=== PATIENT | female | born 1965 | race Caucasian/White ===

== ENCOUNTER 2019-05-26 11:04 | Observation (INO) | payer BC ==
[2019-05-26] MEDS ORDERED: DUONEB 0.5-3 MG/3 ml Neb IH ONE ×2 (11:13→11:15)
--- NOTE | 2019-05-26 11:14 | ERPHSYRPT ---
- History of Present Illness Time Seen by Provider: 05/26/19 11:14 Source: patient Exam Limitations: no limitations Physician History: 53 y/o obese, diabetic white female with h/o htn and copd presents from home with worsening soa and cough. pt wears 2 liters nc oxygen during the day and 3 liters nc oxygen at hs. pt denies cp and denies abd pain. Timing/Duration: day(s) (3) Activities at Onset: none Severity of Dyspnea-Max: moderate Severity of Dyspnea-Current: moderate Possible Cause: occasional episodes Modifying Factors: Improves With: coughing, oxygen Associated Symptoms: cough, No chest pain/discomfort Allergies/Adverse Reactions: ceftriaxone sodium [From Rocephin] Allergy (Intermediate, Verified 05/26/19 11: 08) sob in er when given this med. reversed with benadryl and solu-medrol and pepcid morphine Adverse Reaction (Verified 05/26/19 11:08) Home Medications: Amlodipine Besylate 10 mg [Norvasc 10 MG] 10 mg PO DAILY 12/19/11 [History] Levothyroxine Sodium 100 Mcg [Synthroid 100 Mcg] 100 mcg PO DAILY 12/19/11 [History] Lisinopril 20 mg PO DAILY 12/19/11 [History] Simvastatin 40 mg [Zocor 40 mg] 40 mg PO DAILY 12/19/11 [History] Sitagliptin Phos/Metformin HCl [Janumet 50-1,000 mg Tablet] 1 each PO BID [History] Zolpidem Tartrate 10 mg [Ambien 10 MG] 10 mg PO HS 12/19/11 [History] Canagliflozin [Invokana] 300 mg PO DAILY 12/02/15 [History] Ciprofloxacin [Cipro 500 MG] 500 mg PO BID 12/02/15 [History] Glimepiride 4 mg [Amaryl 4 mg] 4 mg PO DAILY 12/02/15 [History] Insulin Glargine,Hum.rec.anlog [Toujeo Solostar] 75 unit SQ BID 12/02/15 [ History] Insulin Glargine,Hum.rec.anlog [Toujeo Solostar] 75 unit SQ BID 12/02/15 [ History] Ipratropium/Albuterol Sulfate [Combivent Respimat Common Canister] 1 puff IH BIDPRN PRN 12/02/15 [History] Oxycodone HCl/Acetaminophen [Percocet 10-325 mg Tablet] 1 each PO BID PRN [History] Tiotropium Br/Olodaterol HCl [Stiolto Respimat Inhal [place]] 4 gm IH DAILY PRN PRN 12/02/15 [History] Hx Tetanus, Diphtheria Vaccination/Date Given: Yes Hx Influenza Vaccination/Date Given: No Hx Pneumococcal Vaccination/Date Given: No - Review of Systems Constitutional: No Symptoms Eyes: No Symptoms Ears, Nose, & Throat: No Symptoms Respiratory: Cough, Dyspnea Cardiac: No Symptoms Abdominal/Gastrointestinal: No Symptoms Genitourinary Symptoms: No Symptoms Musculoskeletal: No Symptoms Skin: No Symptoms Neurological: No Symptoms Psychological: No Symptoms Endocrine: No Symptoms Hematologic/Lymphatic: No Symptoms Immunological/Allergic: No Symptoms All Other Systems: Reviewed and Negative - Past Medical History Pertinent Past Medical History: Yes Neurological History: No Pertinent History ENT History: No Pertinent History Cardiac History: Hypertension Respiratory History: COPD, Sleep Apnea Endocrine Medical History: Diabetes Type I, Hypothyroidism Musculoskeletal History: No Pertinent History GI Medical History: No Pertinent History History: Other Psycho-Social History: No Pertinent History Female Reproductive Disorders: No Pertinent History Other Medical History: freq UTI's and "small" L kidney - Past Surgical History Past Surgical History: Yes Neuro Surgical History: No Pertinent History Cardiac: No Pertinent History Respiratory: No Pertinent History Gastrointestinal: Cholecystectomy, Hernia Repair Genitourinary: No Pertinent History Musculoskeletal: No Pertinent History Female Surgical History: Tubal Ligation Other Surgical History: heart cath no interventions - Social History Smoking Status: Former smoker Exposure to second hand smoke: No Drug Use: none Patient Lives Alone: No - Nursing Vital Signs Nursing Vital Signs: Initial Vital Signs Temperature 99.2 F 05/26/19 11:08 Pulse Rate 94 H 05/26/19 11:08 Respiratory Rate 25 H 05/26/19 11:08 Blood Pressure 174/86 05/26/19 11:08 O2 Sat by Pulse Oximetry 82 L 05/26/19 11:08 Pain Scale Pain Intensity 0 - Physical Exam General Appearance: mild distress, alert, anxiety Eye Exam: PERRL/EOMI, eyes nml inspection Ears, Nose, Throat Exam: hearing grossly normal, normal pharynx Neck Exam: normal inspection, non-tender, supple, full range of motion Respiratory Exam: normal breath sounds, airway intact, wheezing, No chest tenderness, No respiratory distress, No accessory muscle use, No rhonchi, No stridor Cardiovascular/Chest Exam: normal heart sounds, regular rate/rhythm, murmur Abdominal/Gastrointestinal Exam: soft, normal bowel sounds, No tenderness Rectal Exam: not done Extremity Exam: non-tender, normal range of motion, normal inspection Neurologic Exam: alert, oriented x 3, 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 STAT Care 05/26/19 11:30 Active EKG-ER Only STAT Care 05/26/19 11:30 Active IV Insertion STAT Care 05/26/19 11:30 Active Oxygen-ED Only Nasal Cannula 2 lpm Care 05/26/19 11:30 Active CHEST 1 VIEW (PORTABLE) Stat Exams 05/26/19 11:30 Completed BLOOD CULTURE Stat Lab 05/26/19 12:33 Received CBC W DIFF Stat Lab 05/26/19 11:30 Completed CMP Stat Lab 05/26/19 11:30 Completed NT PRO BNP Stat Lab 05/26/19 11:30 Completed TROPONIN Q3H Lab 05/26/19 11:30 Completed TROPONIN Q3H Lab 05/26/19 14:30 Ordered TROPONIN Q3H Lab 05/26/19 17:30 Ordered TROPONIN Q3H Lab 05/26/19 20:30 Ordered TROPONIN Q3H Lab 05/26/19 23:30 Ordered Peak Expiratory Flow Rate ONCE RT 05/26/19 11:15 Active Respiratory Therapy Assessment ONCE RT 05/26/19 11:15 Active Transfer Order Routine Transfer 05/26/19 Ordered Medication Summary Generic Name Dose Route Start Last Admin Trade Name Freq PRN Reason Stop Dose Admin Levofloxacin/Dextrose 750 mg in 150 mls @ 100 mls/hr 05/26/19 12:19 05/26/19 12:42 Levofloxacin 750mg/150ml D5w IV 05/26/19 13:48 100 mls/hr STAT STA 100 mls/hr Administration Discontinued Medications Generic Name Dose Route Start Last Admin Trade Name Casey PRN Reason Stop Dose Admin Albuterol/Ipratropium Confirm 05/26/19 11:13 Duoneb 0.5-3 Mg/3 Ml Neb Administered 05/26/19 11:14 Dose 3 ml IH .STK-MED ONE Albuterol/Ipratropium 3 ml 05/26/19 11:15 05/26/19 11:16 Duoneb 0.5-3 Mg/3 Ml Neb IH 05/26/19 11:16 3 ml ONCE ONE Administration Levofloxacin/Dextrose Confirm 05/26/19 12:38 Levofloxacin 750mg/150ml D5w Administered 05/26/19 12:39 Dose 750 mg in 150 mls @ ud IV .STK-MED ONE Methylprednisolone Sodium Succinate 125 mg 05/26/19 11:30 05/26/19 11:43 Solu-Medrol 125 Mg IV 05/26/19 11:31 125 mg STAT ONE Administration Methylprednisolone Sodium Succinate Confirm 05/26/19 11:42 Solu-Medrol 125 Mg Administered 05/26/19 11:43 Dose 125 mg .ROUTE .STK-MED ONE Lab/Rad Data: Laboratory Result Diagrams 05/26/19 11:30 05/26/19 11:30 Laboratory Results 05/26/19 05/26/19 05/26/19 Range/Units Unknown 11:30 11:30 WBC 8.4 (4.0-10.5) K/mm3 RBC 4.07 L (4.1-5.4) M/mm3 Hgb 11.2 L (12.0-16.0) gm/dl Hct 37.0 (35-47) % MCV 90.9 (78-100) fl MCH 27.5 (26-32) pg MCHC 30.3 L (32-36) g/dl RDW 16.7 H (11.5-14.0) % Plt Count 284 (150-450) K/mm3 MPV 9.3 (6-9.5) fl Gran % 71.7 H (36.0-66.0) % Eos # (Auto) 0.02 (0-0.5) Absolute Lymphs (auto) 1.55 (1.0-4.6) Absolute Monos (auto) 0.81 (0.0-1.3) Lymphocytes % 18.4 L (24.0-44.0) % Monocytes % 9.6 (0.0-12.0) % Eosinophils % 0.2 (0.00-5.0) % Basophils % 0.1 (0.0-0.4) % Absolute Granulocytes 6.04 (1.4-6.9) Basophils # 0.01 (0-0.4) Sodium 140 (137-145) mmol/L Potassium 4.0 (3.5-5.1) mmol/L Chloride 99 (98-107) mmol/L Carbon Dioxide 30 (22-30) mmol/L Anion Gap 14.6 (5-15) MEQ/L BUN 11 (7-17) mg/dL Creatinine 0.78 (0.52-1.04) mg/dL Estimated GFR > 60.0 ML/MIN Glucose 83 (74-106) mg/dL Calcium 9.1 (8.4-10.2) mg/dL Total Bilirubin 0.30 (0.2-1.3) mg/dL AST 23 (14-36) U/L ALT 19 (0-35) U/L Alkaline Phosphatase 61 (38-126) U/L Troponin I (0.000-0.034) ng/mL NT-Pro-B Natriuret Pep 80.1 (0-900) pg/mL Serum Total Protein 7.5 (6.3-8.2) g/dL Albumin 4.1 (3.5-5.0) g/dL Influenza Type A Ag NEGATIVE (NEGATIVE) Influenza Type B Ag NEGATIVE (NEGATIVE) RSV (PCR) NEGATIVE (Negative) 05/26/19 Range/Units 11:30 WBC (4.0-10.5) K/mm3 RBC (4.1-5.4) M/mm3 Hgb (12.0-16.0) gm/dl Hct (35-47) % MCV (78-100) fl MCH (26-32) pg MCHC (32-36) g/dl RDW (11.5-14.0) % Plt Count (150-450) K/mm3 MPV (6-9.5) fl Gran % (36.0-66.0) % Eos # (Auto) (0-0.5) Absolute Lymphs (auto) (1.0-4.6) Absolute Monos (auto) (0.0-1.3) Lymphocytes % (24.0-44.0) % Monocytes % (0.0-12.0) % Eosinophils % (0.00-5.0) % Basophils % (0.0-0.4) % Absolute Granulocytes (1.4-6.9) Basophils # (0-0.4) Sodium (137-145) mmol/L Potassium (3.5-5.1) mmol/L Chloride (98-107) mmol/L Carbon Dioxide (22-30) mmol/L Anion Gap (5-15) MEQ/L BUN (7-17) mg/dL Creatinine (0.52-1.04) mg/dL Estimated GFR ML/MIN Glucose (74-106) mg/dL Calcium (8.4-10.2) mg/dL Total Bilirubin (0.2-1.3) mg/dL AST (14-36) U/L ALT (0-35) U/L Alkaline Phosphatase (38-126) U/L Troponin I < 0.012 (0.000-0.034) ng/mL NT-Pro-B Natriuret Pep (0-900) pg/mL Serum Total Protein (6.3-8.2) g/dL Albumin (3.5-5.0) g/dL Influenza Type A Ag (NEGATIVE) Influenza Type B Ag (NEGATIVE) RSV (PCR) (Negative) - Progress Progress: improved Air Movement: good Progress Note: 05/26/19 12:45 cxr-lingular air space dz 05/26/19 12:[address] figueroa. i reviewed pt hx, condition, lab, ekg, and xray findings. he agrees with placement in obs. Blood Culture(s) Obtained: Yes Antibiotics given: Yes Discussed with : Diamond Counseled pt/family regarding: lab results, diagnosis, need for follow-up, rad results - Departure Departure Disposition: Observation Clinical Impression: COPD exacerbation, Pulmonary infiltrate Condition: Stable Critical Care Time: No Referrals: CHICO FIGUEROA MD [Primary Care Provider] - Instructions: Chronic Obstructive Pulmonary Disease
[2019-05-26] MEDS ORDERED: solu-MEDROL 125 MG IV ONE (11:30)
[2019-05-26] MEDS ORDERED: solu-MEDROL 125 MG ONE (11:42)
[2019-05-26 11:46] LABS: Absolute Neutrophil Ct (ANC) 6.04 (1.4-6.9); BASOPHIL % 0.1 % (0.0-0.4); Basophil (Absolute #) 0.01 (0-0.4); Eosinophil % 0.2 % (0.00-5.0); Eosinophil (Absolute #) 0.02 (0-0.5); Hemoglobin 11.2 gm/dl (12.0-16.0); Lymphocyte (Absolute #) 1.55 (1.0-4.6); Lymphocytes % 18.4 % (24.0-44.0); Mean Cell Volume 90.9 fl (78-100); Mean Corpuscular Hemoglobin 27.5 pg (26-32); Mean Corpuscular Hgb Concent. 30.3 g/dl (32-36); Mean Platelet Volume 9.3 fl (6-9.5); Monocyte (Absolute #) 0.81 (0.0-1.3); Monocytes % 9.6 % (0.0-12.0); Neutrophil % 71.7 % (36.0-66.0); Platelet Count 284 K/mm3 (150-450); Red Blood Count 4.07 M/mm3 (4.1-5.4); Red Cell Distribution Width 16.7 % (11.5-14.0); White Blood Count 8.4 K/mm3 (4.0-10.5)
--- NOTE | 2019-05-26 12:04 | XRAY ---
Indication: Cough and short of breath. Comparison: May 30, 2017. Portable chest demonstrates new lingula air space disease without consolidation/large effusion. Remaining heart, right lung, and bony thorax normal.
[2019-05-26 12:09] LABS: ALBUMIN 4.1 g/dL (3.5-5.0); ALKALINE PHOSPHATASE 61 U/L (38-126); ANION GAP 14.6 MEQ/L (5-15); BLOOD UREA NITROGEN 11 mg/dL (7-17); CHLORIDE 99 mmol/L (98-107); Calcium 9.1 mg/dL (8.4-10.2); Carbon Dioxide 30 mmol/L (22-30); Creatinine 1 0.78 mg/dL (0.52-1.04); Glucose 83 mg/dL (74-106); NT PRO BNP 80.1 pg/mL (0-900); SGOT/AST 23 U/L (14-36); SGPT/ALT 19 U/L (0-35); SODIUM 140 mmol/L (137-145); Total Protein 7.5 g/dL (6.3-8.2)
[2019-05-26] MEDS ORDERED: LEVOFLOXACIN 750MG/150ML D5W 750 MG/150 ML BAG IV STA (12:19)
[2019-05-26 12:28] LABS: INFLUENZA A NEGATIVE (NEGATIVE); INFLUENZA B NEGATIVE (NEGATIVE); RESPIRATORY SYNCTIAL VIRUS NEGATIVE (Negative)
[2019-05-26] MEDS ORDERED: LEVOFLOXACIN 750MG/150ML D5W 750 MG/150 ML BAG IV ONE (12:38)
[2019-05-26] MEDS ORDERED: Zofran 4 MG/2 ML VIAL IV PRN (14:10)
[2019-05-26] MEDS ORDERED: TYLENOL 325 MG PO PRN (14:10)
[2019-05-26] MEDS: Sodium Chloride 0.9% 1000 ML 1,000 ML IV SCH (14:17)
[2019-05-26] MEDS: DUONEB 0.5-3 MG/3 ml Neb IH SCH ×3 (14:41→22:32)
[2019-05-26] MEDS: PATIENT OWN MEDICATION IH SCH (14:41)
[2019-05-26] MEDS ORDERED: Ventolin Hfa MDI IH PRN (14:50)
[2019-05-26] MEDS ORDERED: GABAPENTIN PO SCH (15:00)
[2019-05-26] MEDS ORDERED: PROVENTIL COMMON CANISTER IH PRN (15:24)
[2019-05-26] MEDS: NEURONTIN 300 MG PO SCH ×2 (15:26→22:12)
[2019-05-26] MEDS ORDERED: INSULIN REGULAR HUMAN SQ SCH (16:30)
[2019-05-26] MEDS ORDERED: NovoLIN R SQ SCH (16:30)
[2019-05-26] MEDS ORDERED: PROVENTIL 2.5 MG/3 ML NEB IH PRN (17:18)
[2019-05-26] MEDS: NovoLOG Insulin SQ PRN ×2 (18:26→22:13)
[2019-05-26] MEDS ORDERED: ATORVASTATIN CALCIUM PO SCH (22:00)
[2019-05-26] MEDS: ZOCOR 20MG PO SCH (22:12)
[2019-05-26] MEDS: Zestril 20 MG PO SCH (22:12)
[2019-05-26] MEDS: Ambien 10 MG PO SCH (22:12)
[2019-05-26] MEDS: solu-MEDROL 125 MG IV SCH (22:12)
[2019-05-27] MEDS: DUONEB 0.5-3 MG/3 ml Neb IH SCH ×6 (02:38→23:03)
[2019-05-27 04:56] LABS: Absolute Neutrophil Ct (ANC) 5.88 (1.4-6.9); Basophil (Absolute #) 0 (0-0.4); Eosinophil (Absolute #) 0 (0-0.5); Hematocrit 34.8 % (35-47); Hemoglobin 10.6 gm/dl (12.0-16.0); Lymphocyte (Absolute #) 0.81 (1.0-4.6); Lymphocytes % 11.7 % (24.0-44.0); Mean Cell Volume 90.4 fl (78-100); Mean Corpuscular Hemoglobin 27.5 pg (26-32); Mean Corpuscular Hgb Concent. 30.5 g/dl (32-36); Mean Platelet Volume 9.2 fl (6-9.5); Monocyte (Absolute #) 0.23 (0.0-1.3); Monocytes % 3.3 % (0.0-12.0); Platelet Count 296 K/mm3 (150-450); Red Blood Count 3.85 M/mm3 (4.1-5.4); Red Cell Distribution Width 16.3 % (11.5-14.0); White Blood Count 6.9 K/mm3 (4.0-10.5)
[2019-05-27 05:26] LABS: ALBUMIN 3.8 g/dL (3.5-5.0); ALKALINE PHOSPHATASE 65 U/L (38-126); ANION GAP 17.1 MEQ/L (5-15); BLOOD UREA NITROGEN 16 mg/dL (7-17); CHLORIDE 98 mmol/L (98-107); Calcium 8.9 mg/dL (8.4-10.2); Carbon Dioxide 27 mmol/L (22-30); Creatinine 1 0.86 mg/dL (0.52-1.04); Potassium 5.1 mmol/L (3.5-5.1); SGOT/AST 19 U/L (14-36); SGPT/ALT 20 U/L (0-35); SODIUM 137 mmol/L (137-145); Total Protein 7.2 g/dL (6.3-8.2)
[2019-05-27 05:27] LABS: Glucose 538 mg/dL (74-106)
[2019-05-27] MEDS ORDERED: NovoLOG Insulin SQ ONE (05:36)
[2019-05-27] MEDS: solu-MEDROL 125 MG IV SCH ×3 (05:46→21:12)
[2019-05-27] MEDS: NovoLIN R SQ SCH ×3 (08:06→17:25)
[2019-05-27] MEDS: Levofloxacin 500MG/100ML D5W 500 MG/100 ML BAG IV SCH (09:42)
[2019-05-27] MEDS: Sodium Chloride 0.9% 1000 ML 1,000 ML IV SCH (09:45)
[2019-05-27] MEDS: SYNTHROID 100 MCG PO SCH (09:51)
[2019-05-27] MEDS: NORVASC 5 MG PO SCH (09:52)
[2019-05-27] MEDS: Glucophage 500 MG PO SCH (09:52)
[2019-05-27] MEDS: NEURONTIN 300 MG PO SCH ×3 (09:52→21:13)
[2019-05-27] MEDS: Zestril 20 MG PO SCH ×2 (09:52→21:13)
[2019-05-27] MEDS: SYNTHROID 75 MCG PO SCH (09:53)
[2019-05-27] MEDS ORDERED: NON-FORMULARY ITEM (Amlodipine Besylate 10 Mg [Norvasc 10 Mg] 10 MG) PO SCH (10:00)
[2019-05-27] MEDS: NovoLOG Insulin SQ PRN ×3 (12:07→21:13)
--- NOTE | 2019-05-27 13:20 | PCM.HP ---
History of Present Illness - Chief Complaint Chief Complaint: shortness of breath for 2 days History of Present Illness: is a 53 year old female diabetic white female with h/o htn and copd presents from home with worsening soa and cough. pt wears 2 liters nc oxygen during the day and 3 liters nc oxygen at hs. pt denies cp and denies abd pain. Timing/Duration: day(s) (3) Activities at Onset: none Severity of Dyspnea-Max: moderate Severity of Dyspnea-Current: moderate Possible Cause: occasional episodes Modifying Factors: Improves With: coughing, oxygen Associated Symptoms: cough, No chest pain/discomfort - Review of Systems Constitutional: No Fever, No Chills Eyes: No Symptoms Ears, Nose, & Throat: No Symptoms Respiratory: No Cough, No Short Of Breath Cardiac: No Chest Pain, No Edema, No Syncope Abdominal/Gastrointestinal: No Abdominal Pain, No Nausea, No Vomiting, No Diarrhea Genitourinary Symptoms: No Dysuria Musculoskeletal: No Back Pain, No Neck Pain Skin: No Rash Neurological: No Dizziness, No Focal Weakness, No Sensory Changes Psychological: No Symptoms Endocrine: No Symptoms Hematologic/Lymphatic: No Symptoms Immunological/Allergic: No Symptoms Medications & Allergies Home Medications: Home Medication List Amlodipine Besylate 10 mg [Norvasc 10 MG] 10 mg PO DAILY 12/19/11 [History Confirmed 05/26/19] Levothyroxine Sodium 100 Mcg [Synthroid 100 Mcg] 175 mcg PO DAILY 12/19/11 [History Confirmed 05/26/19] Lisinopril 20 mg PO BID 12/19/11 [History Confirmed 05/26/19] Zolpidem Tartrate 10 mg [Ambien 10 MG] 10 mg PO HS 12/19/11 [History Confirmed 05/26/19] Albuterol Sulfate [Albuterol Sulfate Hfa] 1 puff IH Q4H PRN PRN 05/26/19 [ History Confirmed 05/26/19] Atorvastatin Calcium 1 tablet PO HS 05/26/19 [History Confirmed 05/26/19] Ergocalciferol (Vitamin D2) [Vitamin D2] 50,000 unit PO Q7D 05/26/19 [History Confirmed 05/26/19] Fluticasone/Umeclidin/Vilanter [Trelegy Ellipta 100-62.5-25] 1 puff IH DAILY [History Confirmed 05/26/19] Gabapentin 1 tab PO TID 05/26/19 [History Confirmed 05/26/19] Insulin Regular, Human [Humulin R U-500 Kwikpen] 105 units SQ UD 05/26/19 [ History Confirmed 05/26/19] Metformin HCl 500 mg [Glucophage 500 MG] 2 tab PO DAILY 05/26/19 [History Confirmed 05/26/19] Allergies/Adverse Reactions: Allergies Allergy/AdvReac Type Severity Reaction Status Date / Time ceftriaxone sodium Allergy Intermediate Verified 05/26/19 11:08 [From Rocephin] morphine AdvReac Verified 05/26/19 11:08 - Past Medical History Past Medical History: Yes Neurological History: No Pertinent History ENT History: No Pertinent History Cardiac History: Hypertension Respiratory History: COPD, Sleep Apnea Endocrine Medical History: Diabetes Type II, Hypothyroidism Musculoskelatal History: No Pertinent History GI Medical History: No Pertinent History History: Other Pyscho-Social History: No Pertinent History Reproductive Disorders: No Pertinent History Comment: freq UTI's and "small" L kidney - Female History Hx Last Menstrual Period: yrs ago Are you now?: No - Past Surgical History Past Surgical History: Yes Neuro Surgical History: No Pertinent History Cardiac History: Cardiac Catheterization Respiratory Surgery: No Pertinent History GI Surgical History: Cholecystectomy, Hernia Repair Genitourinary Surgical Hx: No Pertinent History Musculskeletal Surgical Hx: No Pertinent History Female Surgical History: Tubal Ligation Other Surgical History: heart cath no interventions - Social History Smoking Status: Former smoker How long have you smoked: 35 yr Exposure to second hand smoke: No Alcohol: None Drug Use: none - Physical Exam Vital Signs: Vital Signs - 24 hr Temp Pulse Resp BP Pulse Ox 05/27/19 12:33 97.8 F 91 H 22 159/73 93 L 05/27/19 11:00 92 H 24 05/27/19 07:32 97.7 F 85 22 168/73 94 L 05/27/19 07:02 85 18 94 L 05/27/19 04:00 98.1 F 75 20 139/65 92 L 05/27/19 02:41 77 18 93 L 05/27/19 00:00 98.2 F 87 18 162/74 93 L 05/26/19 22:35 78 20 92 L 05/26/19 20:00 98.5 F 91 H 20 135/89 93 L 05/26/19 19:13 82 22 94 L 05/26/19 17:24 90 22 92 L 05/26/19 16:13 98.3 F 86 28 H 131/68 91 L 05/26/19 14:49 99.9 F 83 20 147/66 05/26/19 14:44 83 20 92 L 05/26/19 14:08 99.9 F 94 H 20 147/66 91 L 05/26/19 13:44 83 18 150/79 94 L Oxygen-Last 24 hours O2 Percentage 2 Liters = 28% O2 Percentage 3 Liters = 32% O2 Percentage 3 Liters = 32% O2 Percentage 3 Liters = 32% O2 Percentage 3 Liters = 32% O2 Percentage 3 Liters = 32% O2 Percentage 2 Liters = 28% O2 Percentage 2 Liters = 28% General Appearance: no apparent distress, alert Neurologic Exam: alert, oriented x 3, cooperative, normal mood/affect, nml cerebellar function, nml station & gait, sensation nml, No motor deficits Eye Exam: PERRL/EOMI, eyes nml inspection Ears, Nose, Throat Exam: normal ENT inspection, TMs normal, pharynx normal, moist mucous membranes Neck Exam: normal inspection, non-tender, supple, full range of motion Respiratory Exam: normal breath sounds, lungs clear, No respiratory distress Cardiovascular Exam: regular rate/rhythm, normal heart sounds, normal peripheral pulses Gastrointestinal/Abdomen Exam: soft, normal bowel sounds, No tenderness, No mass Back Exam: normal inspection, normal range of motion, No CVA tenderness, No vertebral tenderness Extremity Exam: normal inspection, normal range of motion, pelvis stable Skin Exam: normal color, warm, dry, No rash Lymphatic Exam: No adenopathy Results - Labs Lab/Micro Results: Accuchecks Date 05/26/19 Date 05/26/19 Time 22:00 Time 17:15 Accucheck Value: 345 Accucheck Value: 398 Accucheck Value: 462 Accucheck Value: 362 Lab Results-Last 24 Hours 05/26/19 05/26/19 05/26/19 Range/Units 11:30 14:20 17:30 WBC (4.0-10.5) K/mm3 RBC (4.1-5.4) M/mm3 Hgb (12.0-16.0) gm/dl Hct (35-47) % MCV (78-100) fl MCH (26-32) pg MCHC (32-36) g/dl RDW (11.5-14.0) % Plt Count (150-450) K/mm3 MPV (6-9.5) fl Gran % (36.0-66.0) % Eos # (Auto) (0-0.5) Absolute Lymphs (auto) (1.0-4.6) Absolute Monos (auto) (0.0-1.3) Lymphocytes % (24.0-44.0) % Monocytes % (0.0-12.0) % Eosinophils % (0.00-5.0) % Basophils % (0.0-0.4) % Absolute Granulocytes (1.4-6.9) Basophils # (0-0.4) Sodium (137-145) mmol/L Potassium (3.5-5.1) mmol/L Chloride (98-107) mmol/L Carbon Dioxide (22-30) mmol/L Anion Gap (5-15) MEQ/L BUN (7-17) mg/dL Creatinine (0.52-1.04) mg/dL Estimated GFR ML/MIN Glucose (74-106) mg/dL Hemoglobin A1c 8.56 H (4.5-6.0) % Calcium (8.4-10.2) mg/dL Total Bilirubin (0.2-1.3) mg/dL AST (14-36) U/L ALT (0-35) U/L Alkaline Phosphatase (38-126) U/L Troponin I < 0.012 < 0.012 (0.000-0.034) ng/mL Serum Total Protein (6.3-8.2) g/dL Albumin (3.5-5.0) g/dL 05/26/19 05/26/19 05/27/19 Range/Units 20:31 23:37 04:40 WBC 6.9 (4.0-10.5) K/mm3 RBC 3.85 L (4.1-5.4) M/mm3 Hgb 10.6 L (12.0-16.0) gm/dl Hct 34.8 L (35-47) % MCV 90.4 (78-100) fl MCH 27.5 (26-32) pg MCHC 30.5 L (32-36) g/dl RDW 16.3 H (11.5-14.0) % Plt Count 296 (150-450) K/mm3 MPV 9.2 (6-9.5) fl Gran % 85.0 H (36.0-66.0) % Eos # (Auto) 0 (0-0.5) Absolute Lymphs (auto) 0.81 L (1.0-4.6) Absolute Monos (auto) 0.23 (0.0-1.3) Lymphocytes % 11.7 L (24.0-44.0) % Monocytes % 3.3 (0.0-12.0) % Eosinophils % 0.0 (0.00-5.0) % Basophils % 0.0 (0.0-0.4) % Absolute Granulocytes 5.88 (1.4-6.9) Basophils # 0 (0-0.4) Sodium (137-145) mmol/L Potassium (3.5-5.1) mmol/L Chloride (98-107) mmol/L Carbon Dioxide (22-30) mmol/L Anion Gap (5-15) MEQ/L BUN (7-17) mg/dL Creatinine (0.52-1.04) mg/dL Estimated GFR ML/MIN Glucose (74-106) mg/dL Hemoglobin A1c (4.5-6.0) % Calcium (8.4-10.2) mg/dL Total Bilirubin (0.2-1.3) mg/dL AST (14-36) U/L ALT (0-35) U/L Alkaline Phosphatase (38-126) U/L Troponin I < 0.012 < 0.012 (0.000-0.034) ng/mL Serum Total Protein (6.3-8.2) g/dL Albumin (3.5-5.0) g/dL 05/27/19 Range/Units 04:40 WBC (4.0-10.5) K/mm3 RBC (4.1-5.4) M/mm3 Hgb (12.0-16.0) gm/dl Hct (35-47) % MCV (78-100) fl MCH (26-32) pg MCHC (32-36) g/dl RDW (11.5-14.0) % Plt Count (150-450) K/mm3 MPV (6-9.5) fl Gran % (36.0-66.0) % Eos # (Auto) (0-0.5) Absolute Lymphs (auto) (1.0-4.6) Absolute Monos (auto) (0.0-1.3) Lymphocytes % (24.0-44.0) % Monocytes % (0.0-12.0) % Eosinophils % (0.00-5.0) % Basophils % (0.0-0.4) % Absolute Granulocytes (1.4-6.9) Basophils # (0-0.4) Sodium 137 (137-145) mmol/L Potassium 5.1 D (3.5-5.1) mmol/L Chloride 98 (98-107) mmol/L Carbon Dioxide 27 (22-30) mmol/L Anion Gap 17.1 H (5-15) MEQ/L BUN 16 (7-17) mg/dL Creatinine 0.86 (0.52-1.04) mg/dL Estimated GFR > 60.0 ML/MIN Glucose 538 H* (74-106) mg/dL Hemoglobin A1c (4.5-6.0) % Calcium 8.9 (8.4-10.2) mg/dL Total Bilirubin 0.30 (0.2-1.3) mg/dL AST 19 (14-36) U/L ALT 20 (0-35) U/L Alkaline Phosphatase 65 (38-126) U/L Troponin I (0.000-0.034) ng/mL Serum Total Protein 7.2 (6.3-8.2) g/dL Albumin 3.8 (3.5-5.0) g/dL Accuchecks Date 05/26/19 Date 05/26/19 Time 22:00 Time 17:15 Accucheck Value: 345 Accucheck Value: 398 Accucheck Value: 462 Accucheck Value: 362 - Radiology Impressions Radiology Exams & Impressions: Radiology Procedures Category Date Time Status CHEST 1 VIEW (PORTABLE) Stat Exams 05/26/19 11:30 Completed - Other Procedures and Tests Respiratory Therapy 05/26/19 14:10 Oxygen Nasal Cannula 2 lpm 05/26/19 15:49 BiPap/CPAP ROUTINE 05/27/19 07:00 Respiratory MDI UD Assessment/Plan (1) COPD exacerbation Current Visit: Yes Status: Acute Assessment & Plan: Chief Complaint Diagnosis copd exac, LLL infiltrate,hypoxia Allergies Allergy/AdvReac Type Severity Reaction Status Date / Time ceftriaxone sodium Allergy Intermediate Verified 05/26/19 11:08 [From Rocephin] morphine AdvReac Verified 05/26/19 11:08 Vital Signs (Last 24 hours) Temp Pulse Resp BP Pulse Ox 05/27/19 12:33 97.8 F 91 H 22 159/73 93 L 05/27/19 11:00 92 H 24 05/27/19 07:32 97.7 F 85 22 168/73 94 L 05/27/19 07:02 85 18 94 L 05/27/19 04:00 98.1 F 75 20 139/65 92 L 05/27/19 02:41 77 18 93 L 05/27/19 00:00 98.2 F 87 18 162/74 93 L 05/26/19 22:35 78 20 92 L 05/26/19 20:00 98.5 F 91 H 20 135/89 93 L 05/26/19 19:13 82 22 94 L 05/26/19 17:24 90 22 92 L 05/26/19 16:13 98.3 F 86 28 H 131/68 91 L 05/26/19 14:49 99.9 F 83 20 147/66 05/26/19 14:44 83 20 92 L 05/26/19 14:08 99.9 F 94 H 20 147/66 91 L 05/26/19 13:44 83 18 150/79 94 L Home Medications Medication Instructions Recorded Confirmed Last Taken Type Albuterol Sulfate [Albuterol 1 puff IH Q4H PRN PRN 05/26/19 05/26/19 05/26/19 History Sulfate Hfa] Atorvastatin Calcium 1 tablet PO HS 05/26/19 05/26/19 05/25/19 History Ergocalciferol (Vitamin D2) 50,000 unit PO Q7D 05/26/19 05/26/19 Unknown History [Vitamin D2] Fluticasone/Umeclidin/Vilanter 1 puff IH DAILY 05/26/19 05/26/19 05/26/19 History [Trelegy Ellipta 100-62.5-25] Gabapentin 1 tab PO TID 05/26/19 05/26/19 05/26/19 History Insulin Regular, Human [Humulin R 105 units SQ UD 05/26/19 05/26/19 Unknown History U-500 Kwikpen] Metformin HCl 500 mg 2 tab PO DAILY 05/26/19 05/26/19 05/26/19 History [Glucophage 500 MG] Current Medications Generic Name Dose Route Start Last Admin Trade Name Freq PRN Reason Stop Dose Admin Acetaminophen 650 mg 05/26/19 14:10 Tylenol 325 Mg PO 06/25/19 14:09 Q4H PRN PRN PAIN, FEVER, HEADACHE Albuterol Sulfate 2 puff 05/26/19 15:24 Proventil Common Canister IH 06/25/19 15:23 Q4H PRN PRN Albuterol Sulfate 2.5 mg 05/26/19 17:18 05/26/19 17:22 Proventil 2.5 Mg/3 Ml Neb IH 06/25/19 17:17 2.5 mg Q4H PRN PRN Administration SHORTNESS OF BREATH/WHEEZING Albuterol/Ipratropium 3 ml 05/26/19 15:00 05/27/19 10:59 Duoneb 0.5-3 Mg/3 Ml Neb IH 06/25/19 14:59 3 ml Q4HRT MONIQUE Administration Amlodipine Besylate 10 mg 05/27/19 10:00 05/27/19 09:52 Norvasc 5 Mg PO 06/26/19 09:59 10 mg QAM MONIQUE Administration Ergocalciferol 50,000 unit 06/01/19 10:00 Vitamin D2 PO 07/01/19 09:59 Q7D MONIQUE Gabapentin 600 mg 05/26/19 15:15 05/27/19 09:52 Neurontin 300 Mg PO 06/25/19 15:14 600 mg TID MONIQUE Administration Levofloxacin/Dextrose 500 mg in 100 mls @ 100 mls/hr 05/27/19 10:00 05/27/19 09:42 Levofloxacin 500mg/100ml D5w IV 06/26/19 09:59 100 mls/hr Q24H10 MONIQUE Administration Sodium Chloride 1,000 mls @ 50 mls/hr 05/26/19 14:10 05/27/19 09:45 Sodium Chloride 0.9% 1000 Ml IV 06/25/19 14:09 50 mls/hr .Q20H MONIQUE Administration Insulin Aspart 0 unit 05/26/19 18:07 05/27/19 12:07 Novolog Insulin SQ 06/25/19 18:06 12 unit UD PRN Administration HYPERGLYCEMIA Insulin Human Regular 105 unit 05/27/19 08:00 05/27/19 12:07 Novolin R SQ 06/26/19 07:59 105 unit 0800,1200 MONIQUE Administration Insulin Human Regular 75 unit 05/27/19 17:00 Novolin R SQ 06/26/19 16:59 DINNER MONIQUE Levothyroxine Sodium 100 mcg 05/27/19 10:00 05/27/19 09:51 Synthroid 100 Mcg PO 06/26/19 09:59 100 mcg DAILY MONIQUE Administration Levothyroxine Sodium 75 mcg 05/27/19 10:00 05/27/19 09:53 Synthroid 75 Mcg PO 06/26/19 09:59 75 mcg DAILY MONIQUE Administration Lisinopril 20 mg 05/26/19 22:00 05/27/19 09:52 Zestril 20 Mg PO 06/25/19 21:59 20 mg BID MONIQUE Administration Metformin HCl 1,000 mg 05/27/19 10:00 05/27/19 09:52 Glucophage 500 Mg PO 06/26/19 09:59 1,000 mg DAILY MONIQUE Administration Methylprednisolone Sodium Succinate 80 mg 05/26/19 22:00 05/27/19 05:46 Solu-Medrol 125 Mg IV 06/25/19 21:59 80 mg Q8HT MONIQUE Administration Ondansetron HCl 4 mg 05/26/19 14:10 Zofran 4 Mg/2 Ml Vial IV 06/25/19 14:09 Q6H PRN PRN NAUSEA/VOMITING Patient Own Med ( 1 each 05/27/19 10:00 05/26/19 14:41 Trelegy) IH 06/26/19 09:59 1 each DAILY MONIQUE Administration Simvastatin 20 mg 05/26/19 22:00 05/26/19 22:12 Zocor 20mg PO 06/25/19 21:59 20 mg HS MONIQUE Administration Zolpidem Tartrate 10 mg 05/26/19 22:00 05/26/19 22:12 Ambien 10 Mg PO 06/25/19 21:59 10 mg HS MONIQUE Administration Discontinued Medications Generic Name Dose Route Start Last Admin Trade Name Freq PRN Reason Stop Dose Admin Albuterol/Ipratropium Confirm 05/26/19 11:13 Duoneb 0.5-3 Mg/3 Ml Neb Administered 05/26/19 11:14 Dose 3 ml IH .STK-MED ONE Albuterol/Ipratropium 3 ml 05/26/19 11:15 05/26/19 11:16 Duoneb 0.5-3 Mg/3 Ml Neb IH 05/26/19 11:16 3 ml ONCE ONE Administration Levofloxacin/Dextrose 750 mg in 150 mls @ 100 mls/hr 05/26/19 12:19 05/26/19 12:42 Levofloxacin 750mg/150ml D5w IV 05/26/19 13:48 100 mls/hr STAT STA 100 mls/hr Administration Levofloxacin/Dextrose Confirm 05/26/19 12:38 Levofloxacin 750mg/150ml D5w Administered 05/26/19 12:39 Dose 750 mg in 150 mls @ ud IV .STK-MED ONE Insulin Aspart 20 unit 05/27/19 05:36 05/27/19 05:46 Novolog Insulin SQ 05/27/19 05:37 20 unit STAT ONE Administration Insulin Human Regular 105 unit 05/26/19 16:30 05/27/19 07:34 Novolin R SQ 06/25/19 16:29 Not Given TIDAC MONIQUE Methylprednisolone Sodium Succinate 125 mg 05/26/19 11:30 05/26/19 11:43 Solu-Medrol 125 Mg IV 05/26/19 11:31 125 mg STAT ONE Administration Methylprednisolone Sodium Succinate Confirm 05/26/19 11:42 Solu-Medrol 125 Mg Administered 05/26/19 11:43 Dose 125 mg .ROUTE .STK-MED ONE Intake & Output (Last 24 hours) 05/25/19 05/26/19 05/27/19 05/28/19 11:59 11:59 11:59 11:59 Intake Total 3104 20 Output Total 4200 1000 Balance -1096 -980 Weight 145.15 kg 145.8 kg Microbiology Results (Last 24 hours) 05/26/19 12:33 Blood Blood Culture Gram Stain - Pending 05/26/19 12:33 Blood Blood Culture - Pending 05/26/19 12:25 Blood Blood Culture Gram Stain - Pending 05/26/19 12:25 Blood Blood Culture - Pending Laboratory Results (Last 24 hours) 05/27/19 05/27/19 05/26/19 04:40 04:40 23:37 WBC 6.9 RBC 3.85 L Hgb 10.6 L Hct 34.8 L MCV 90.4 MCH 27.5 MCHC 30.5 L RDW 16.3 H Plt Count 296 MPV 9.2 Gran % 85.0 H Eos # (Auto) 0 Absolute Lymphs (auto) 0.81 L Absolute Monos (auto) 0.23 Lymphocytes % 11.7 L Monocytes % 3.3 Eosinophils % 0.0 Basophils % 0.0 Absolute Granulocytes 5.88 Basophils # 0 Sodium 137 Potassium 5.1 D Chloride 98 Carbon Dioxide 27 Anion Gap 17.1 H BUN 16 Creatinine 0.86 Estimated GFR > 60.0 Glucose 538 H* Hemoglobin A1c Calcium 8.9 Total Bilirubin 0.30 AST 19 ALT 20 Alkaline Phosphatase 65 Troponin I < 0.012 Serum Total Protein 7.2 Albumin 3.8 05/26/19 05/26/19 05/26/19 20:31 17:30 14:20 WBC RBC Hgb Hct MCV MCH MCHC RDW Plt Count MPV Gran % Eos # (Auto) Absolute Lymphs (auto) Absolute Monos (auto) Lymphocytes % Monocytes % Eosinophils % Basophils % Absolute Granulocytes Basophils # Sodium Potassium Chloride Carbon Dioxide Anion Gap BUN Creatinine Estimated GFR Glucose Hemoglobin A1c Calcium Total Bilirubin AST ALT Alkaline Phosphatase Troponin I < 0.012 < 0.012 < 0.012 Serum Total Protein Albumin 05/26/19 11:30 WBC RBC Hgb Hct MCV MCH MCHC RDW Plt Count MPV Gran % Eos # (Auto) Absolute Lymphs (auto) Absolute Monos (auto) Lymphocytes % Monocytes % Eosinophils % Basophils % Absolute Granulocytes Basophils # Sodium Potassium Chloride Carbon Dioxide Anion Gap BUN Creatinine Estimated GFR Glucose Hemoglobin A1c 8.56 H Calcium Total Bilirubin AST ALT Alkaline Phosphatase Troponin I Serum Total Protein Albumin Orders (Last 24 hours) Category Date Time Status Up With Assistance TOLERATED Activity 05/26/19 14:10 Active ACCUCHECK [Accucheck] ACHS Care 05/26/19 17:26 Active Code Status Order ROUTINE Care 05/26/19 14:[address] in Observation ROUTINE Care 05/26/19 14:10 Active Weight,Daily 0600 Care 05/26/19 14:10 Active 1800 Calorie ADA Diet 05/26/19 Dinner Active Nutritional Admission Screen Diet 05/26/19 15:18 Active BLOOD CULTURE Stat Lab 05/26/19 12:33 Received CBC W DIFF AM.LAB Lab 05/27/19 04:40 Completed CMP AM.LAB Lab 05/27/19 04:40 Completed TROPONIN Q3H Lab 05/26/19 14:20 Completed TROPONIN Q3H Lab 05/26/19 17:30 Completed TROPONIN Q3H Lab 05/26/19 20:31 Completed TROPONIN Q3H Lab 05/26/19 23:37 Completed Acetaminophen 325 mg [Tylenol 325 mg] Med 05/26/19 14:10 Active 650 mg PO Q4H PRN PRN Albuterol 2.5 mg/3 ml Neb [Proventil 2.5 mg/3 ml Neb Med 05/26/19 17:18 Active ] 2.5 mg IH Q4H PRN PRN Albuterol Common Canister [Proventil Common Canister Med 05/26/19 15:24 Active ] 2 puff IH Q4H PRN PRN Albuterol/Ipratropium 3ml Neb* [DUONEB 0.5-3 MG/3 ml Med 05/26/19 15:00 Active Neb] 3 ml IH Q4HRT Amlodipine Besylate 5 mg [Norvasc 5 mg] Med 05/27/19 10:00 Active 10 mg PO QAM Ergocalciferol (Vitamin D2) [Vitamin D2] Med 06/01/19 10:00 Active 50,000 unit PO Q7D Gabapentin 300 mg [Neurontin 300 mg] Med 05/26/19 15:15 Active 600 mg PO TID Insulin Aspart [NovoLOG Insulin] Med 05/27/19 05:36 Discontinued 20 unit SQ STAT ONE Insulin Aspart [NovoLOG Insulin] Med 05/26/19 18:07 Active See Dose Instructions SQ UD PRN Insulin Regular, Human [NovoLIN R] Med 05/27/19 08:00 Active 105 unit SQ 0800,1200 Insulin Regular, Human [NovoLIN R] Med 05/26/19 16:30 Discontinued 105 unit SQ TIDAC Insulin Regular, Human [NovoLIN R] Med 05/27/19 17:00 Active 75 unit SQ DINNER Levofloxacin [Levofloxacin 500MG/100ML D5W] Med 05/27/19 10:00 Active 500 mg in 100 ml IV Q24H10 Levofloxacin [Levofloxacin 750Mg/150Ml D5w] Med 05/26/19 12:38 Discontinued 750 mg in 150 ml IV UD Levothyroxine Sodium 100 Mcg [Synthroid 100 Mcg] Med 05/27/19 10:00 Active 100 mcg PO DAILY Levothyroxine Sodium 75 Mcg [Synthroid 75 Mcg] Med 05/27/19 10:00 Active 75 mcg PO DAILY Lisinopril 20 mg [Zestril 20 MG] Med 05/26/19 22:00 Active 20 mg PO BID Metformin HCl 500 mg [Glucophage 500 MG] Med 05/27/19 10:00 Active 1,000 mg PO DAILY Methylprednis Sod Succ 125 mg* [solu-MEDROL 125 MG] Med 05/26/19 22:00 Active 80 mg IV Q8HT NaCl 0.9% 1000 ml [Sodium Chloride 0.9% 1000 ML] 1,000 Med 05/26/19 14:10 Active ml IV 50 mls/hr Ondansetron HCl 4 mg/2 ml [Zofran 4 MG/2 ML VIAL] Med 05/26/19 14:10 Active 4 mg IV Q6H PRN PRN Patient Own Med [Patient Own Medication] Med 05/27/19 10:00 Active 1 each IH DAILY Simvastatin 20Mg [Zocor 20Mg] Med 05/26/19 22:00 Active 20 mg PO HS Zolpidem Tartrate 10 mg [Ambien 10 MG] Med 05/26/19 22:00 Active 10 mg PO HS BiPap/CPAP ROUTINE RT 05/26/19 15:49 Active Oxygen Nasal Cannula 2 lpm RT 05/26/19 14:10 Active Pulse Oximetry .spot check RT 05/26/19 14:43 Active RT Screen per Nursing Assess ONCE RT 05/26/19 15:18 Completed Respiratory MDI UD RT 05/27/19 07:00 Active Patient Care Notes (Last 24 hours) 05/26/19 18:09 Nursing Note by Beverley Young Dr called regarding pt home insulin dose; new order received. Initialized on 05/26/19 18:09 - END OF NOTE 05/26/19 14:14 Nursing Note by Lee Brandon Called Dr Berkowitz's [place] office and talked with his nurse. Was informed by his nurse to continue patient's home medications for hospital admission. Initialized on 05/26/19 14:14 - END OF NOTE 05/26/19 13:57 (created 05/26/19 15:32) Nursing Note by Beverley Young Pt admitted to room 103; oriented to room. pleasant and cooperative. SOB, o2 @ 2l per N/C SPO2 91%. O2 turned up to 3 L per N/C. Call light in reach. HOB up. Initialized on 05/26/19 15:32 - END OF NOTE Code(s): J44.1 - CHRONIC OBSTRUCTIVE PULMONARY DISEASE W (ACUTE) EXACERBATION (2) Pulmonary infiltrate Current Visit: Yes Status: Acute Assessment & Plan: Chief Complaint Diagnosis copd exac, LLL infiltrate,hypoxia Allergies Allergy/AdvReac Type Severity Reaction Status Date / Time ceftriaxone sodium Allergy Intermediate Verified 05/26/19 11:08 [From Rocephin] morphine AdvReac Verified 05/26/19 11:08 Vital Signs (Last 24 hours) Temp Pulse Resp BP Pulse Ox 05/27/19 12:33 97.8 F 91 H 22 159/73 93 L 05/27/19 11:00 92 H 24 05/27/19 07:32 97.7 F 85 22 168/73 94 L 05/27/19 07:02 85 18 94 L 05/27/19 04:00 98.1 F 75 20 139/65 92 L 05/27/19 02:41 77 18 93 L 05/27/19 00:00 98.2 F 87 18 162/74 93 L 05/26/19 22:35 78 20 92 L 05/26/19 20:00 98.5 F 91 H 20 135/89 93 L 05/26/19 19:13 82 22 94 L 05/26/19 17:24 90 22 92 L 05/26/19 16:13 98.3 F 86 28 H 131/68 91 L 05/26/19 14:49 99.9 F 83 20 147/66 05/26/19 14:44 83 20 92 L 05/26/19 14:08 99.9 F 94 H 20 147/66 91 L 05/26/19 13:44 83 18 150/79 94 L Home Medications Medication Instructions Recorded Confirmed Last Taken Type Albuterol Sulfate [Albuterol 1 puff IH Q4H PRN PRN 05/26/19 05/26/19 05/26/19 History Sulfate Hfa] Atorvastatin Calcium 1 tablet PO HS 05/26/19 05/26/19 05/25/19 History Ergocalciferol (Vitamin D2) 50,000 unit PO Q7D 05/26/19 05/26/19 Unknown History [Vitamin D2] Fluticasone/Umeclidin/Vilanter 1 puff IH DAILY 05/26/19 05/26/19 05/26/19 History [Trelegy Ellipta 100-62.5-25] Gabapentin 1 tab PO TID 05/26/19 05/26/19 05/26/19 History Insulin Regular, Human [Humulin R 105 units SQ UD 05/26/19 05/26/19 Unknown History U-500 Kwikpen] Metformin HCl 500 mg 2 tab PO DAILY 05/26/19 05/26/19 05/26/19 History [Glucophage 500 MG] Current Medications Generic Name Dose Route Start Last Admin Trade Name Freq PRN Reason Stop Dose Admin Acetaminophen 650 mg 05/26/19 14:10 Tylenol 325 Mg PO 06/25/19 14:09 Q4H PRN PRN PAIN, FEVER, HEADACHE Albuterol Sulfate 2 puff 05/26/19 15:24 Proventil Common Canister IH 06/25/19 15:23 Q4H PRN PRN Albuterol Sulfate 2.5 mg 05/26/19 17:18 05/26/19 17:22 Proventil 2.5 Mg/3 Ml Neb IH 06/25/19 17:17 2.5 mg Q4H PRN PRN Administration SHORTNESS OF BREATH/WHEEZING Albuterol/Ipratropium 3 ml 05/26/19 15:00 05/27/19 10:59 Duoneb 0.5-3 Mg/3 Ml Neb IH 06/25/19 14:59 3 ml Q4HRT MONIQUE Administration Amlodipine Besylate 10 mg 05/27/19 10:00 05/27/19 09:52 Norvasc 5 Mg PO 06/26/19 09:59 10 mg QAM MONIQUE Administration Ergocalciferol 50,000 unit 06/01/19 10:00 Vitamin D2 PO 07/01/19 09:59 Q7D MONIQUE Gabapentin 600 mg 05/26/19 15:15 05/27/19 09:52 Neurontin 300 Mg PO 06/25/19 15:14 600 mg TID MONIQUE Administration Levofloxacin/Dextrose 500 mg in 100 mls @ 100 mls/hr 05/27/19 10:00 05/27/19 09:42 Levofloxacin 500mg/100ml D5w IV 06/26/19 09:59 100 mls/hr Q24H10 MONIQUE Administration Sodium Chloride 1,000 mls @ 50 mls/hr 05/26/19 14:10 05/27/19 09:45 Sodium Chloride 0.9% 1000 Ml IV 06/25/19 14:09 50 mls/hr .Q20H MONIQUE Administration Insulin Aspart 0 unit 05/26/19 18:07 05/27/19 12:07 Novolog Insulin SQ 06/25/19 18:06 12 unit UD PRN Administration HYPERGLYCEMIA Insulin Human Regular 105 unit 05/27/19 08:00 05/27/19 12:07 Novolin R SQ 06/26/19 07:59 105 unit 0800,1200 MONIQUE Administration Insulin Human Regular 75 unit 05/27/19 17:00 Novolin R SQ 06/26/19 16:59 DINNER MONIQUE Levothyroxine Sodium 100 mcg 05/27/19 10:00 05/27/19 09:51 Synthroid 100 Mcg PO 06/26/19 09:59 100 mcg DAILY MONIQUE Administration Levothyroxine Sodium 75 mcg 05/27/19 10:00 05/27/19 09:53 Synthroid 75 Mcg PO 06/26/19 09:59 75 mcg DAILY MONIQUE Administration Lisinopril 20 mg 05/26/19 22:00 05/27/19 09:52 Zestril 20 Mg PO 06/25/19 21:59 20 mg BID MONIQUE Administration Metformin HCl 1,000 mg 05/27/19 10:00 05/27/19 09:52 Glucophage 500 Mg PO 06/26/19 09:59 1,000 mg DAILY MONIQUE Administration Methylprednisolone Sodium Succinate 80 mg 05/26/19 22:00 05/27/19 05:46 Solu-Medrol 125 Mg IV 06/25/19 21:59 80 mg Q8HT MONIQUE Administration Ondansetron HCl 4 mg 05/26/19 14:10 Zofran 4 Mg/2 Ml Vial IV 06/25/19 14:09 Q6H PRN PRN NAUSEA/VOMITING Patient Own Med ( 1 each 05/27/19 10:00 05/26/19 14:41 Trelegy) IH 06/26/19 09:59 1 each DAILY MONIQUE Administration Simvastatin 20 mg 05/26/19 22:00 05/26/19 22:12 Zocor 20mg PO 06/25/19 21:59 20 mg HS MONIQUE Administration Zolpidem Tartrate 10 mg 05/26/19 22:00 05/26/19 22:12 Ambien 10 Mg PO 06/25/19 21:59 10 mg HS MONIQUE Administration Discontinued Medications Generic Name Dose Route Start Last Admin Trade Name Freq PRN Reason Stop Dose Admin Albuterol/Ipratropium Confirm 05/26/19 11:13 Duoneb 0.5-3 Mg/3 Ml Neb Administered 05/26/19 11:14 Dose 3 ml IH .STK-MED ONE Albuterol/Ipratropium 3 ml 05/26/19 11:15 05/26/19 11:16 Duoneb 0.5-3 Mg/3 Ml Neb IH 05/26/19 11:16 3 ml ONCE ONE Administration Levofloxacin/Dextrose 750 mg in 150 mls @ 100 mls/hr 05/26/19 12:19 05/26/19 12:42 Levofloxacin 750mg/150ml D5w IV 05/26/19 13:48 100 mls/hr STAT STA 100 mls/hr Administration Levofloxacin/Dextrose Confirm 05/26/19 12:38 Levofloxacin 750mg/150ml D5w Administered 05/26/19 12:39 Dose 750 mg in 150 mls @ ud IV .STK-MED ONE Insulin Aspart 20 unit 05/27/19 05:36 05/27/19 05:46 Novolog Insulin SQ 05/27/19 05:37 20 unit STAT ONE Administration Insulin Human Regular 105 unit 05/26/19 16:30 05/27/19 07:34 Novolin R SQ 06/25/19 16:29 Not Given TIDAC MONIQUE Methylprednisolone Sodium Succinate 125 mg 05/26/19 11:30 05/26/19 11:43 Solu-Medrol 125 Mg IV 05/26/19 11:31 125 mg STAT ONE Administration Methylprednisolone Sodium Succinate Confirm 05/26/19 11:42 Solu-Medrol 125 Mg Administered 05/26/19 11:43 Dose 125 mg .ROUTE .STK-MED ONE Intake & Output (Last 24 hours) 05/25/19 05/26/19 05/27/19 05/28/19 11:59 11:59 11:59 11:59 Intake Total 3104 20 Output Total 4200 1000 Balance -1096 -980 Weight 145.15 kg 145.8 kg Microbiology Results (Last 24 hours) 05/26/19 12:33 Blood Blood Culture Gram Stain - Pending 05/26/19 12:33 Blood Blood Culture - Pending 05/26/19 12:25 Blood Blood Culture Gram Stain - Pending 05/26/19 12:25 Blood Blood Culture - Pending Laboratory Results (Last 24 hours) 05/27/19 05/27/19 05/26/19 04:40 04:40 23:37 WBC 6.9 RBC 3.85 L Hgb 10.6 L Hct 34.8 L MCV 90.4 MCH 27.5 MCHC 30.5 L RDW 16.3 H Plt Count 296 MPV 9.2 Gran % 85.0 H Eos # (Auto) 0 Absolute Lymphs (auto) 0.81 L Absolute Monos (auto) 0.23 Lymphocytes % 11.7 L Monocytes % 3.3 Eosinophils % 0.0 Basophils % 0.0 Absolute Granulocytes 5.88 Basophils # 0 Sodium 137 Potassium 5.1 D Chloride 98 Carbon Dioxide 27 Anion Gap 17.1 H BUN 16 Creatinine 0.86 Estimated GFR > 60.0 Glucose 538 H* Hemoglobin A1c Calcium 8.9 Total Bilirubin 0.30 AST 19 ALT 20 Alkaline Phosphatase 65 Troponin I < 0.012 Serum Total Protein 7.2 Albumin 3.8 05/26/19 05/26/19 05/26/19 20:31 17:30 14:20 WBC RBC Hgb Hct MCV MCH MCHC RDW Plt Count MPV Gran % Eos # (Auto) Absolute Lymphs (auto) Absolute Monos (auto) Lymphocytes % Monocytes % Eosinophils % Basophils % Absolute Granulocytes Basophils # Sodium Potassium Chloride Carbon Dioxide Anion Gap BUN Creatinine Estimated GFR Glucose Hemoglobin A1c Calcium Total Bilirubin AST ALT Alkaline Phosphatase Troponin I < 0.012 < 0.012 < 0.012 Serum Total Protein Albumin 05/26/19 11:30 WBC RBC Hgb Hct MCV MCH MCHC RDW Plt Count MPV Gran % Eos # (Auto) Absolute Lymphs (auto) Absolute Monos (auto) Lymphocytes % Monocytes % Eosinophils % Basophils % Absolute Granulocytes Basophils # Sodium Potassium Chloride Carbon Dioxide Anion Gap BUN Creatinine Estimated GFR Glucose Hemoglobin A1c 8.56 H Calcium Total Bilirubin AST ALT Alkaline Phosphatase Troponin I Serum Total Protein Albumin Orders (Last 24 hours) Category Date Time Status Up With Assistance TOLERATED Activity 05/26/19 14:10 Active ACCUCHECK [Accucheck] ACHS Care 05/26/19 17:26 Active Code Status Order ROUTINE Care 05/26/19 14:[address] in Observation ROUTINE Care 05/26/19 14:10 Active Weight,Daily 0600 Care 05/26/19 14:10 Active 1800 Calorie ADA Diet 05/26/19 Dinner Active Nutritional Admission Screen Diet 05/26/19 15:18 Active BLOOD CULTURE Stat Lab 05/26/19 12:33 Received CBC W DIFF AM.LAB Lab 05/27/19 04:40 Completed CMP AM.LAB Lab 05/27/19 04:40 Completed TROPONIN Q3H Lab 05/26/19 14:20 Completed TROPONIN Q3H Lab 05/26/19 17:30 Completed TROPONIN Q3H Lab 05/26/19 20:31 Completed TROPONIN Q3H Lab 05/26/19 23:37 Completed Acetaminophen 325 mg [Tylenol 325 mg] Med 05/26/19 14:10 Active 650 mg PO Q4H PRN PRN Albuterol 2.5 mg/3 ml Neb [Proventil 2.5 mg/3 ml Neb Med 05/26/19 17:18 Active ] 2.5 mg IH Q4H PRN PRN Albuterol Common Canister [Proventil Common Canister Med 05/26/19 15:24 Active ] 2 puff IH Q4H PRN PRN Albuterol/Ipratropium 3ml Neb* [DUONEB 0.5-3 MG/3 ml Med 05/26/19 15:00 Active Neb] 3 ml IH Q4HRT Amlodipine Besylate 5 mg [Norvasc 5 mg] Med 05/27/19 10:00 Active 10 mg PO QAM Ergocalciferol (Vitamin D2) [Vitamin D2] Med 06/01/19 10:00 Active 50,000 unit PO Q7D Gabapentin 300 mg [Neurontin 300 mg] Med 05/26/19 15:15 Active 600 mg PO TID Insulin Aspart [NovoLOG Insulin] Med 05/27/19 05:36 Discontinued 20 unit SQ STAT ONE Insulin Aspart [NovoLOG Insulin] Med 05/26/19 18:07 Active See Dose Instructions SQ UD PRN Insulin Regular, Human [NovoLIN R] Med 05/27/19 08:00 Active 105 unit SQ 0800,1200 Insulin Regular, Human [NovoLIN R] Med 05/26/19 16:30 Discontinued 105 unit SQ TIDAC Insulin Regular, Human [NovoLIN R] Med 05/27/19 17:00 Active 75 unit SQ DINNER Levofloxacin [Levofloxacin 500MG/100ML D5W] Med 05/27/19 10:00 Active 500 mg in 100 ml IV Q24H10 Levofloxacin [Levofloxacin 750Mg/150Ml D5w] Med 05/26/19 12:38 Discontinued 750 mg in 150 ml IV UD Levothyroxine Sodium 100 Mcg [Synthroid 100 Mcg] Med 05/27/19 10:00 Active 100 mcg PO DAILY Levothyroxine Sodium 75 Mcg [Synthroid 75 Mcg] Med 05/27/19 10:00 Active 75 mcg PO DAILY Lisinopril 20 mg [Zestril 20 MG] Med 05/26/19 22:00 Active 20 mg PO BID Metformin HCl 500 mg [Glucophage 500 MG] Med 05/27/19 10:00 Active 1,000 mg PO DAILY Methylprednis Sod Succ 125 mg* [solu-MEDROL 125 MG] Med 05/26/19 22:00 Active 80 mg IV Q8HT NaCl 0.9% 1000 ml [Sodium Chloride 0.9% 1000 ML] 1,000 Med 05/26/19 14:10 Active ml IV 50 mls/hr Ondansetron HCl 4 mg/2 ml [Zofran 4 MG/2 ML VIAL] Med 05/26/19 14:10 Active 4 mg IV Q6H PRN PRN Patient Own Med [Patient Own Medication] Med 05/27/19 10:00 Active 1 each IH DAILY Simvastatin 20Mg [Zocor 20Mg] Med 05/26/19 22:00 Active 20 mg PO HS Zolpidem Tartrate 10 mg [Ambien 10 MG] Med 05/26/19 22:00 Active 10 mg PO HS BiPap/CPAP ROUTINE RT 05/26/19 15:49 Active Oxygen Nasal Cannula 2 lpm RT 05/26/19 14:10 Active Pulse Oximetry .spot check RT 05/26/19 14:43 Active RT Screen per Nursing Assess ONCE RT 05/26/19 15:18 Completed Respiratory MDI UD RT 05/27/19 07:00 Active Patient Care Notes (Last 24 hours) 05/26/19 18:09 Nursing Note by Beverley Young Dr called regarding pt home insulin dose; new order received. Initialized on 05/26/19 18:09 - END OF NOTE 05/26/19 14:14 Nursing Note by Lee Brandon Called Dr Berkowitz's [place] office and talked with his nurse. Was informed by his nurse to continue patient's home medications for hospital admission. Initialized on 05/26/19 14:14 - END OF NOTE 05/26/19 13:57 (created 05/26/19 15:32) Nursing Note by Beverley Young Pt admitted to room 103; oriented to room. pleasant and cooperative. SOB, o2 @ 2l per N/C SPO2 91%. O2 turned up to 3 L per N/C. Call light in reach. HOB up. Initialized on 05/26/19 15:32 - END OF NOTE Code(s): R91.8 - OTHER NONSPECIFIC ABNORMAL FINDING OF LUNG FIELD (3) Diabetes Current Visit: Yes Status: Chronic Qualifiers: Diabetes mellitus type: type 2 Diabetes mellitus snf insulin use: with snf use Diabetes mellitus complication status: with hyperglycemia Qualified Code(s): E11.65 - Type 2 diabetes mellitus with hyperglycemia; Z79.4 - director long term care (current) use of insulin Code(s): E11.9 - TYPE 2 DIABETES MELLITUS WITHOUT COMPLICATIONS
[2019-05-27] MEDS: Ambien 10 MG PO SCH (21:13)
[2019-05-27] MEDS: ZOCOR 20MG PO SCH (21:13)
[2019-05-28] MEDS: DUONEB 0.5-3 MG/3 ml Neb IH SCH ×6 (03:02→22:52)
[2019-05-28] MEDS: PATIENT OWN MEDICATION IH SCH (06:44)
[2019-05-28] MEDS: solu-MEDROL 125 MG IV SCH (06:54)
[2019-05-28] MEDS: NovoLIN R SQ SCH ×3 (08:29→18:08)
[2019-05-28] MEDS: NovoLOG Insulin SQ PRN ×3 (08:30→22:30)
[2019-05-28] MEDS: Levofloxacin 500MG/100ML D5W 500 MG/100 ML BAG IV SCH (09:23)
[2019-05-28] MEDS: Zestril 20 MG PO SCH ×2 (09:27→21:10)
[2019-05-28] MEDS: SYNTHROID 75 MCG PO SCH (09:27)
[2019-05-28] MEDS: SYNTHROID 100 MCG PO SCH (09:27)
[2019-05-28] MEDS: Glucophage 500 MG PO SCH (09:27)
[2019-05-28] MEDS: NORVASC 5 MG PO SCH (09:27)
[2019-05-28] MEDS: NEURONTIN 300 MG PO SCH ×3 (09:27→21:10)
[2019-05-28] MEDS ORDERED: CORTISPORIN EAR DROPS Solution 1OML OT ONE (10:48)
--- NOTE | 2019-05-28 12:30 | PCM.NOTE ---
Date and Time: 05/28/19 1227 Subjective Assessment: doing ok - Review of Systems Constitutional: No Fever, No Chills Eyes: No Symptoms Ears, Nose, & Throat: No Symptoms Respiratory: No Cough, No Short Of Breath Cardiac: No Chest Pain, No Edema, No Syncope Abdominal/Gastrointestinal: No Abdominal Pain, No Nausea, No Vomiting, No Diarrhea Genitourinary Symptoms: No Dysuria Musculoskeletal: No Back Pain, No Neck Pain Skin: No Rash Neurological: No Dizziness, No Focal Weakness, No Sensory Changes Psychological: No Symptoms Endocrine: No Symptoms Hematologic/Lymphatic: No Symptoms Immunological/Allergic: No Symptoms Objective Exam General Appearance: no apparent distress, alert Neurologic Exam: alert, oriented x 3, cooperative, normal mood/affect, nml cerebellar function, sensation nml, No motor deficits Skin Exam: normal color, warm, dry Eye Exam: PERRL, EOMI, eyes nml inspection Ears, Nose, Throat Exam: normal ENT inspection, pharynx normal, moist mucous membranes Neck Exam: normal inspection, non-tender, supple, full range of motion Respiratory Exam: normal breath sounds, diminished breath sounds, prolonged expirations, No respiratory distress Cardiovascular Exam: regular rate/rhythm, normal heart sounds Gastrointestinal/Abdomen Exam: soft, No tenderness, No mass Extremity Exam: normal inspection, normal range of motion Back Exam: normal inspection, normal range of motion, No CVA tenderness, No vertebral tenderness Pelvic Exam: deferred Rectal Exam: deferred OBJECTIVE DATA Vital Signs: Vital Signs - 24 hr Temp Pulse Resp BP Pulse Ox 05/28/19 11:41 98.3 F 89 18 158/70 93 L 05/28/19 10:59 87 20 95 05/28/19 08:00 97.4 F 81 20 131/68 95 05/28/19 06:49 81 20 95 05/28/19 03:50 72 20 121/65 93 L 05/28/19 03:02 74 18 94 L 05/27/19 23:39 97.9 F 74 19 126/56 92 L 05/27/19 23:15 96 H 18 95 05/27/19 19:40 98.4 F 91 H 21 135/65 96 05/27/19 19:14 887 H 18 94 L 05/27/19 16:32 97.6 F 89 20 138/63 96 05/27/19 14:40 100 H 24 05/27/19 12:33 97.8 F 91 H 22 159/73 93 L Oxygen-Last 24 hours O2 Percentage 3 Liters = 32% O2 Percentage 3 Liters = 32% O2 Percentage 3 Liters = 32% O2 Percentage 3 Liters = 32% O2 Percentage 2 Liters = 28% Pain Assessment - Last Documented Pain Intensity 0 Pain Scale Used 0-10 Pain Scale Intake and Output: Intake & Output 05/26/19 05/27/19 05/28/19 05/29/19 11:59 11:59 11:59 11:59 Intake Total 3104 2838 Output Total 4200 3850 Balance -1096 -1012 Weight 145.15 kg 145.8 kg 148 kg Lab Results: Accuchecks Date 05/28/19 Date 05/28/19 Date 05/27/19 Time 11:30 Time 07:30 Time 21:00 Accucheck Value: 241 Accucheck Value: 169 Accucheck Value: 223 Accucheck Value: 248 Radiology Exams: Radiology Procedures Category Date Time Status CHEST 1 VIEW (PORTABLE) Stat Exams 05/26/19 11:30 Completed Multi-Disciplinary Progress Notes: Multi-Disciplinary Progress Notes 05/28/19 11:05 Case Management Note by Naima Kowalski FAXED PAPERWORK TO [facility] [place] FOR CHANGE OF OXYGEN PROVIDER PER [facility]ED BY [facility]ator[facility] Initialized on 05/28/19 11:05 - END OF NOTE 05/27/19 13:00 (created 05/28/19 11:01) Case Management Note by Naima Kowalski CALL TO [facility] [place] TO INQUIRE ABOUT SWITCHING OXYGEN PROVIDERS. SPOKE WITH STARR. WILL FAX PAPERWORK FOR PT TO SIGN. 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
[2019-05-28] MEDS: Sodium Chloride 0.9% 1000 ML 1,000 ML IV SCH (18:09)
[2019-05-28] MEDS: PULMICORT 0.5 MG/2 ML RESPULES IH SCH (19:05)
[2019-05-28] MEDS: ZOCOR 20MG PO SCH (21:10)
[2019-05-28] MEDS ORDERED: solu-MEDROL 40 MG IV SCH (22:00)
[2019-05-28] MEDS: Ambien 10 MG PO SCH (22:31)
[2019-05-29] MEDS: DUONEB 0.5-3 MG/3 ml Neb IH SCH ×4 (02:50→15:22)
[2019-05-29] MEDS: PULMICORT 0.5 MG/2 ML RESPULES IH SCH (06:39)
[2019-05-29] MEDS: PATIENT OWN MEDICATION IH SCH (06:39)
[2019-05-29] MEDS: NEURONTIN 300 MG PO SCH ×2 (09:11→15:54)
[2019-05-29] MEDS: SYNTHROID 75 MCG PO SCH (09:11)
[2019-05-29] MEDS: SYNTHROID 100 MCG PO SCH (09:11)
[2019-05-29] MEDS: Zestril 20 MG PO SCH (09:12)
[2019-05-29] MEDS: Glucophage 500 MG PO SCH (09:12)
[2019-05-29] MEDS: NORVASC 5 MG PO SCH (09:12)
[2019-05-29] MEDS: NovoLIN R SQ SCH ×2 (09:14→14:30)
[2019-05-29] MEDS: Levofloxacin 500MG/100ML D5W 500 MG/100 ML BAG IV SCH (09:19)
[2019-05-29] MEDS: CORTISPORIN EAR DROPS Solution 1OML OT SCH ×2 (09:59→12:57)
[2019-05-29] MEDS ORDERED: solu-MEDROL 40 MG IV SCH (10:00)
--- NOTE | 2019-05-29 12:35 | PCM.NOTE ---
Date and Time: 05/29/19 1233 Subjective Assessment: doing ok, still short of breath - Review of Systems Constitutional: No Fever, No Chills Eyes: No Symptoms Ears, Nose, & Throat: No Symptoms Respiratory: No Cough, No Short Of Breath Cardiac: No Chest Pain, No Edema, No Syncope Abdominal/Gastrointestinal: No Abdominal Pain, No Nausea, No Vomiting, No Diarrhea Genitourinary Symptoms: No Dysuria Musculoskeletal: No Back Pain, No Neck Pain Skin: No Rash Neurological: No Dizziness, No Focal Weakness, No Sensory Changes Psychological: No Symptoms Endocrine: No Symptoms Hematologic/Lymphatic: No Symptoms Immunological/Allergic: No Symptoms Objective Exam General Appearance: no apparent distress, alert Neurologic Exam: alert, oriented x 3, cooperative, normal mood/affect, nml cerebellar function, sensation nml, No motor deficits Skin Exam: normal color, warm, dry Eye Exam: PERRL, EOMI, eyes nml inspection Ears, Nose, Throat Exam: normal ENT inspection, pharynx normal, moist mucous membranes Neck Exam: normal inspection, non-tender, supple, full range of motion Respiratory Exam: normal breath sounds, rhonchi, wheezing, No respiratory distress Cardiovascular Exam: regular rate/rhythm, normal heart sounds Gastrointestinal/Abdomen Exam: soft, No tenderness, No mass Extremity Exam: normal inspection, normal range of motion Back Exam: normal inspection, normal range of motion, No CVA tenderness, No vertebral tenderness Pelvic Exam: deferred Rectal Exam: deferred OBJECTIVE DATA Vital Signs: Vital Signs - 24 hr Temp Pulse Resp BP Pulse Ox 05/29/19 10:49 76 18 94 L 05/29/19 07:07 97.9 F 73 18 159/75 95 05/29/19 06:43 79 16 93 L 05/29/19 03:43 97.9 F 77 20 135/65 95 05/29/19 02:52 77 18 95 05/28/19 23:45 97.8 F 86 20 146/74 97 05/28/19 23:02 77 20 97 05/28/19 19:30 97.9 F 87 20 175/77 98 05/28/19 19:13 77 20 96 05/28/19 16:00 98.1 F 85 18 156/71 95 05/28/19 14:55 81 20 95 Oxygen-Last 24 hours O2 Percentage 2 Liters = 28% O2 Percentage 3 Liters = 32% O2 Percentage 3 Liters = 32% O2 Percentage 3 Liters = 32% Pain Assessment - Last Documented Pain Intensity 0 Pain Scale Used 0-10 Pain Scale Intake and Output: Intake & Output 05/27/19 05/28/19 05/29/19 05/30/19 11:59 11:59 11:59 11:59 Intake Total 3104 2838 3037 Output Total 4200 3850 1150 Balance -1096 1012 1887 Weight 145.8 kg 148 kg 148.2 kg Lab Results: Accuchecks Date 05/28/19 Date 05/28/19 Time 21:00 Time 16:30 Accucheck Value: 208 Accucheck Value: 212 Accucheck Value: 205 Radiology Exams: Radiology Procedures Category Date Time Status CHEST WITH CONTRAST [CT] Urgent Exams 05/29/19 09:08 Ordered Assessment/Plan (1) COPD exacerbation Current Visit: Yes Status: Acute Assessment & Plan: CT chest today Code(s): J44.1 - CHRONIC OBSTRUCTIVE PULMONARY DISEASE W (ACUTE) EXACERBATION (2) Pulmonary infiltrate Current Visit: Yes Status: Resolved Code(s): R91.8 - OTHER NONSPECIFIC ABNORMAL FINDING OF LUNG FIELD (3) Diabetes Current Visit: Yes Status: Chronic Qualifiers: Diabetes mellitus type: type 2 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
[2019-05-29 12:51] VITALS: BP 162/84
[2019-05-29] MEDS ORDERED: NovoLIN R SQ SCH ×2 (13:22→17:00)
--- NOTE | 2019-05-29 14:40 | XRAY ---
Indication: Short of breath. Pneumonia. Multiple contiguous axial images obtained through the chest using 100 cc Isovue 370 contrast and PE protocol. Comparison: None There is adequate opacification of the pulmonary arteries. No pulmonary embolus. Heart is borderline enlarged with small pericardial effusion. Aorta is minimally arteriosclerotic without aneurysm/dissection. No pathologic mediastinal/hilar lymphadenopathy. Small 1 cm distal paraesophageal node. Lungs demonstrates lingula and bibasilar subsegmental atelectasis/scarring. No suspicious pulmonary mass, infiltrate, or effusion. Bony thorax intact with mild degenerative changes throughout the spine. Limited upper abdomen demonstrates fatty hepatomegaly and left adrenal adenoma unchanged with respect to CT abdomen December 19, 2011. Impression: 1. Negative pulmonary embolus. 2. Bilateral subsegmental atelectasis/scarring. 3. Borderline cardiomegaly with small pericardial effusion. 4. Incidental fatty hepatomegaly and benign left adrenal adenoma. CT DI 45.30
[2019-05-29 15:28] VITALS: PULSE 97; O2SAT 93
[2019-06-01] MEDS ORDERED: VITAMIN D2 PO SCH (10:00)
== END 2019-05-29 16:35 | disposition home or self-care (01) ==
LOC: ED 11:04 → MED SURG 13:57
PROVIDERS: ADMIT General Practice; ATTEND General Practice
DX: J44.1 Chronic obstructive pulmonary disease with (acute) exacerbation (principal); R91.8 Other nonspecific abnormal finding of lung field; E11.9 Type 2 diabetes mellitus without complications; I10 Essential (primary) hypertension; E03.9 Hypothyroidism, unspecified; G47.30 Sleep apnea, unspecified; Z99.81 Dependence on supplemental oxygen; Z79.899 Other long term (current) drug therapy
CPT/HCPCS: 36000; 36415; 71045; 71260; 80053; 82962; 83036; 83880; 84484; 85025; 87040; 87631; 93005; 93041; 94002; 94150; 94640; 94660; 94760; 96374; 99285; G0378; J1956; J2920; J2930; J7609; A9270-GY

== ENCOUNTER 2023-09-03 16:03 | Emergency (ER) | payer BC ==
--- NOTE | 2023-09-03 16:08 | ERPHSYRPT ---
- History of Present Illness Time Seen by Provider: 09/03/23 16:08 Source: patient, family Exam Limitations: no limitations Physician History: This is a morbidly obese 57-year-old white female patient who was seen at her primary care physician's office, Dr. Figueroa, this morning and underwent COVID testing. Patient reports that this testing was negative. No RSV and no group A strep swabs were taken. Patient states that she has had increasing shortness of breath over the last 2 weeks with associated nonproductive cough and a sore throat. Her symptoms have worsened in the last 3 days. Patient has multiple medical issues including hypertension, diabetes, hypothyroidism, COPD on 3 L oxygen via nasal cannula and sleep apnea. Patient arrives by private vehicle. Today's twelve-lead EKG was compared to twelve-lead EKG dated 05/26/2019. That twelve-lead EKG showed a heart rate of 93 bpm and a normal sinus rhythm with no acute ischemic changes. There was normal axis deviation, normal QRS and normal intervals. Patient's oxygenation saturation levels on 3 L nasal cannula is running between 95 and 97%. Patient denies chest pain. Patient denies abdominal pain. Patient states she has not been using her nebulizer. Patient is not taking any steroids. Timing/Duration: week(s) (2), worse (Symptoms worsening over the last 3 days.) Activities at Onset: none Severity of Dyspnea-Max: moderate Severity of Dyspnea-Current: mild Possible Cause: occasional episodes (To moderate) Modifying Factors: Improves With: activity, coughing Associated Symptoms: denies symptoms, cough, No chest pain/discomfort Allergies/Adverse Reactions: ceftriaxone sodium [From Rocephin] Allergy (Intermediate, Verified 09/03/23 16:04) sob in er when given this med. reversed with benadryl and solu-medrol and pepcid, pt denies today 09/03/23 morphine Adverse Reaction (Verified 09/03/23 16:04) Home Medications: Amlodipine Besylate 10 mg [Norvasc 10 MG] 10 mg PO DAILY 12/19/11 [History] Levothyroxine Sodium 100 Mcg [Synthroid 100 Mcg] 175 mcg PO DAILY 12/19/11 [History] Lisinopril 20 mg PO BID 12/19/11 [History] Zolpidem Tartrate 10 mg [Ambien 10 MG] 10 mg PO HS 12/19/11 [History] Albuterol Sulfate [Albuterol Sulfate Hfa] 1 puff IH Q4H PRN PRN 05/26/19 [History] Atorvastatin Calcium 1 tablet PO HS 05/26/19 [History] Ergocalciferol (Vitamin D2) [Vitamin D2] 50,000 unit PO Q7D 05/26/19 [History] Fluticasone/Umeclidin/Vilanter [Trelegy Ellipta 100-62.5-25] 1 puff IH DAILY 05/26/19 [History] Gabapentin 1 tab PO TID 05/26/19 [History] Insulin Regular, Human [Humulin R U-500 Kwikpen] 110 units SQ UD 05/26/19 [History] Metformin HCl 500 mg [Glucophage 500 MG] 2 tab PO DAILY 05/26/19 [History] Insulin Regular, Human [Humulin R U-500 Kwikpen] 60 units SQ UD 05/29/19 [History] Liraglutide [Victoza 2-Keanu] 1.8 mg SQ DAILY 05/29/19 [History] Hx Tetanus, Diphtheria Vaccination/Date Given: Yes Hx Influenza Vaccination/Date Given: No Hx Pneumococcal Vaccination/Date Given: No Travel Risk - International Travel Have you traveled outside of the country in past 3 weeks: No - Emerging Infectious Disease Are you exhibiting symptoms associated with any current EIDs: Yes Symptoms: Cough: New Onset, Shortness of Breath - Review of Systems Constitutional: No Symptoms Eyes: No Symptoms Ears, Nose, & Throat: Throat Pain Respiratory: Cough, Dyspnea on Exertion (MASTERS) Cardiac: No Symptoms, No Chest Pain Abdominal/Gastrointestinal: No Symptoms Genitourinary Symptoms: No Symptoms Musculoskeletal: No Symptoms Skin: No Symptoms Neurological: No Symptoms Psychological: No Symptoms Endocrine: No Symptoms Hematologic/Lymphatic: No Symptoms Immunological/Allergic: No Symptoms All Other Systems: Reviewed and Negative - Past Medical History Pertinent Past Medical History: Yes Neurological History: No Pertinent History ENT History: No Pertinent History Cardiac History: Hypertension Respiratory History: COPD, Sleep Apnea Endocrine Medical History: Diabetes Type II, Hypothyroidism Musculoskeletal History: No Pertinent History GI Medical History: No Pertinent History History: Other Psycho-Social History: No Pertinent History Female Reproductive Disorders: No Pertinent History Other Medical History: freq UTI's and "small" L kidney - Past Surgical History Past Surgical History: Yes Neuro Surgical History: No Pertinent History Cardiac: Cardiac Catheterization Respiratory: No Pertinent History Gastrointestinal: Cholecystectomy, Hernia Repair Genitourinary: No Pertinent History Musculoskeletal: No Pertinent History Female Surgical History: Tubal Ligation Other Surgical History: heart cath no interventions - Social History Smoking Status: Former smoker How long have you smoked: 35 yr Exposure to second hand smoke: No Drug Use: none Patient Lives Alone: No - Nursing Vital Signs Nursing Vital Signs: Initial Vital Signs Pulse Rate 101 H 09/03/23 16:09 Respiratory Rate 21 09/03/23 16:09 Blood Pressure 170/111 09/03/23 16:09 O2 Sat by Pulse Oximetry 96 09/03/23 16:09 Pain Scale Pain Intensity 4 - Physical Exam General Appearance: no apparent distress, alert, anxiety Eye Exam: PERRL/EOMI, eyes nml inspection Ears, Nose, Throat Exam: hearing grossly normal, normal ENT inspection, normal pharynx Neck Exam: normal inspection, non-tender, supple, full range of motion Respiratory Exam: normal breath sounds, lungs clear, airway intact, No chest tenderness, No respiratory distress Cardiovascular/Chest Exam: normal heart sounds, regular rate/rhythm, normal peripheral pulses Abdominal/Gastrointestinal Exam: soft, normal bowel sounds, No tenderness Rectal Exam: not done Extremity Exam: non-tender, normal range of motion, normal inspection, normal capillary refill, no calf tenderness, no pedal edema, pelvis stable Neurologic Exam: alert, oriented x 3, cooperative, supervisor liquefaction II-XII nml as tested, normal mood/affect Skin Exam: normal color, warm, dry Lymphatic Exam: No adenopathy SpO2 Interpretation: normal O2 Delivery: Nasal Cannula (3 L oxygen via nasal cannula) - Course Nursing assessment & vital signs reviewed: Yes EKG Interpreted by Me: RATE ([id number]), Sinus Tach, Right [place] Deviation, NORMAL INTERVALS, NORMAL QRS, NORMAL ST-T, Other (New finding when compared to the twelve-lead EKG dated 05/26/2019 is right axis deviation. There are no acute ischemic changes on today's twelve-lead EKG.) Ordered Tests: Active Orders 24 hr Category Date Time Status Human Intelligence STAT Care 09/03/23 16:26 Active EKG-ER Only STAT Care 09/03/23 16:21 Active IV Insertion STAT Care 09/03/23 16:21 Active Oxygen-ED Only Nasal Cannula 3 lpm Care 09/03/23 16:26 Active Pulse Oximetry (ED) STAT Care 09/03/23 16:21 Active CHEST 1 VIEW (PORTABLE) Stat Exams 09/03/23 16:22 Completed CHEST WITH CONTRAST [CT] Stat Exams 09/03/23 18:22 Taken BLOOD CULTURE Stat Lab 09/03/23 16:48 Received CBC W DIFF Stat Lab 09/03/23 16:30 Completed D-DIMER QUANTITATIVE Stat Lab 09/03/23 16:30 Completed MAGNESIUM Stat Lab 09/03/23 16:30 Completed NT PRO BNPII Stat Lab 09/03/23 16:38 Completed PROTIME WITH INR Stat Lab 09/03/23 16:30 Completed TROPONIN Q4H Lab 09/03/23 20:30 Ordered TROPONIN Q4H Lab 09/04/23 00:30 Ordered Medication Summary Generic Name Dose Route Start Last Admin Trade Name Freq PRN Reason Stop Dose Admin Sodium Chloride 250 mls @ 250 mls/hr 09/03/23 18:30 09/03/23 19:01 Sodium Chloride 0.9% 250 Ml IV 09/03/23 19:29 Infused .Q1H MONIQUE Infusion Discontinued Medications Generic Name Dose Route Start Last Admin Trade Name Freq PRN Reason Stop Dose Admin Hydrocodone Bitart/Acetaminophen 10 ml 09/03/23 19:39 Hydrocodone/Acetaminophen 5 Ml Udcup PO 09/03/23 19:40 STAT STA Methylprednisolone Sodium 0 mg 09/03/23 19:39 Succinate 125 mg/ Sterile IV 09/03/23 19:40 Water 2 ml STAT ONE Lab/Rad Data: Laboratory Result Diagrams 09/03/23 16:30 09/03/23 16:30 Laboratory Results 09/03/23 09/03/23 09/03/23 Range/Units 16:50 16:38 16:30 WBC (4.0-10.5) x10^3/uL RBC (4.1-5.4) x10^6/uL Hgb (12.0-16.0) g/dL Hct (35-47) % MCV (78-100) fL MCH (26-32) pg MCHC (32-36) g/dL RDW (11.5-14.0) % Plt Count (150-450) x10^3/uL MPV (7.5-11.0) fL Gran % (36.0-66.0) % Immature Gran % (Auto) (0.00-0.4) % Nucleat RBC Rel Count (0.00-0.1) % Eos # (Auto) (0-0.5) x10^3/uL Immature Gran # (Auto) (0.00-0.03) x10^3u/L Absolute Lymphs (auto) (1.0-4.6) x10^3/uL Absolute Monos (auto) (0.0-1.3) x10^3/uL Absolute Nucleated RBC (0.00-0.01) x10^3u/L Lymphocytes % (24.0-44.0) % Monocytes % (0.0-12.0) % Eosinophils % (0.00-5.0) % Basophils % (0.0-0.4) % Absolute Granulocytes (1.4-6.9) x10^3/uL Basophils # (0-0.4) x10^3/uL PT (9.4-12.5) SECONDS INR (0.8-3.0) D-Dimer (0.0-0.50) mg/L Sodium Direct (138-146) mmol/L Potassium (3.5-4.9) mmol/L Chloride (98-109) mmol/L Carbon Dioxide (24-29) mmol/L Venous BUN (8-26) mg/dL Creatinine (0.6-1.3) mg/dL Glucose (70-105) mg/dL Ionized Calcium (1.12-1.32) mmol/L Magnesium (1.6-2.3) mg/dL Troponin 0.01 (0.00-0.03) ng/mL NT-Pro-B Natriuret Pep 127 (<300) pg/mL Influenza Type A Ag NEGATIVE (NEGATIVE) Influenza Type B Ag NEGATIVE (NEGATIVE) RSV (PCR) NEGATIVE (NEGATIVE) SARS-CoV-2 (PCR) NEGATIVE (NEGATIVE) Group A Strep Antibody NOT DETECTED (NEGATIVE) 09/03/23 09/03/23 09/03/23 Range/Units 16:30 16:30 16:30 WBC 6.0 (4.0-10.5) x10^3/uL RBC 4.86 (4.1-5.4) x10^6/uL Hgb 13.0 (12.0-16.0) g/dL Hct 41.8 (35-47) % MCV 86.0 (78-100) fL MCH 26.7 (26-32) pg MCHC 31.1 L (32-36) g/dL RDW 15.9 H (11.5-14.0) % Plt Count 343 (150-450) x10^3/uL MPV 9.3 (7.5-11.0) fL Gran % 59.4 (36.0-66.0) % Immature Gran % (Auto) 0.2 (0.00-0.4) % Nucleat RBC Rel Count 0.0 (0.00-0.1) % Eos # (Auto) 0.16 (0-0.5) x10^3/uL Immature Gran # (Auto) 0.01 (0.00-0.03) x10^3u/L Absolute Lymphs (auto) 1.80 (1.0-4.6) x10^3/uL Absolute Monos (auto) 0.44 (0.0-1.3) x10^3/uL Absolute Nucleated RBC 0.00 (0.00-0.01) x10^3u/L Lymphocytes % 30.1 (24.0-44.0) % Monocytes % 7.3 (0.0-12.0) % Eosinophils % 2.7 (0.00-5.0) % Basophils % 0.3 (0.0-0.4) % Absolute Granulocytes 3.56 (1.4-6.9) x10^3/uL Basophils # 0.02 (0-0.4) x10^3/uL PT 10.7 (9.4-12.5) SECONDS INR 0.98 (0.8-3.0) D-Dimer 0.53 H (0.0-0.50) mg/L Sodium Direct 140 (138-146) mmol/L Potassium 3.7 (3.5-4.9) mmol/L Chloride 103 (98-109) mmol/L Carbon Dioxide 25 (24-29) mmol/L Venous BUN 5 L (8-26) mg/dL Creatinine 0.9 (0.6-1.3) mg/dL Glucose 129 H (70-105) mg/dL Ionized Calcium 1.16 (1.12-1.32) mmol/L Magnesium 2.0 (1.6-2.3) mg/dL Troponin (0.00-0.03) ng/mL NT-Pro-B Natriuret Pep (<300) pg/mL Influenza Type A Ag (NEGATIVE) Influenza Type B Ag (NEGATIVE) RSV (PCR) (NEGATIVE) SARS-CoV-2 (PCR) (NEGATIVE) Group A Strep Antibody (NEGATIVE) - Progress Progress: improved, re-examined Air Movement: good Progress Note: 09/03/23 17:20 This patient's medical issue is 1 of moderate complexity. Level of complexity in the workup performed is based on review of the patient's past medical history, review of the patient's medication list, review the patient drug allergy list, history present illness and physical findings on examination. The workup in this patient includes placement of intravenous line, twelve-lead EKG, CBC, CMP, BNP, troponin level, lactic acid level, D-dimer level, chest x-ray, magnesium level and RT evaluation Chest x-ray was interpreted by the radiologist. The impression states that the chest x-ray is a nonacute chest x-ray. 09/03/23 19:45 I interpreted the patient's laboratory data results. The D-dimer was elevated. We ordered a CT of the chest with contrast to evaluate for pulmonary embolus. CT scan of the chest with contrast is negative for pulmonary embolus. This study was interpreted by the radiologist and I reviewed the impression. Blood Culture(s) Obtained: Yes Antibiotics given: Yes Counseled pt/family regarding: lab results, diagnosis, need for follow-up, rad results Medical Desision Making - Independent Historian Additional History obtained from: Spouse - Departure Departure Disposition: Home Clinical Impression: Shortness of breath, Cough, Upper respiratory infection, COPD exacerbation Condition: Stable Critical Care Time: No Referrals: CHICO FIGUEROA MD [Primary Care Provider] - Follow up/PCP as directed Instructions: Chronic Obstructive Pulmonary Disease Additional Instructions: Drink plenty of fluids. Use your nebulizer every 4 hours while awake. Take your antibiotics as prescribed. Take your steroids as prescribed. Call your primary care provider tomorrow, 09/04/2023, to arrange a follow-up appointment in the next 3 to 5 days. Prescriptions: Prednisone 10 mg [Deltasone 10 mg] 10 mg PO TID #12 tablet Hydrocodone/Acetaminophen [Hydrocodone-Acetamn 7.5-325/15] 10 ml PO Q8H PRN #120 ml MDD 30 ml PRN Reason: Cough Azithromycin 250 mg [Zithromax 250 MG TABLET] 250 mg PO DAILY #4 tablet
[2023-09-03 16:13] VITALS: TEMP 98
[2023-09-03 16:57] LABS: Absolute Neutrophil Ct (ANC) 3.56 x10^3/uL (1.4-6.9); BASOPHIL % 0.3 % (0.0-0.4); Basophil (Absolute #) 0.02 x10^3/uL (0-0.4); Eosinophil % 2.7 % (0.00-5.0); Eosinophil (Absolute #) 0.16 x10^3/uL (0-0.5); Hematocrit 41.8 % (35-47); IMMATURE GRAN # 0.01 x10^3u/L (0.00-0.03); IMMATURE GRAN % 0.2 % (0.00-0.4); Lymphocytes % 30.1 % (24.0-44.0); Mean Corpuscular Hemoglobin 26.7 pg (26-32); Mean Corpuscular Hgb Concent. 31.1 g/dL (32-36); Mean Platelet Volume 9.3 fL (7.5-11.0); Monocyte (Absolute #) 0.44 x10^3/uL (0.0-1.3); Monocytes % 7.3 % (0.0-12.0); Neutrophil % 59.4 % (36.0-66.0); Platelet Count 343 x10^3/uL (150-450); Red Blood Count 4.86 x10^6/uL (4.1-5.4); Red Cell Distribution Width 15.9 % (11.5-14.0)
--- NOTE | 2023-09-03 17:04 | XRAY ---
Indication: Cough and short of breath. Comparison: May 26, 2019 Portable chest is now clear. Heart and mediastinal structures within normal limits. Bony thorax intact again with osteopenia and mild degenerative changes. Impression: Nonacute chest.
[2023-09-03 17:21] LABS: ISTAT CREA 0.9 mg/dL (0.6-1.3); ISTAT K 3.7 mmol/L (3.5-4.9); ISTAT iCA 1.16 mmol/L (1.12-1.32)
[2023-09-03 17:22] LABS: Group A Strep NOT DETECTED (NEGATIVE)
[2023-09-03 17:24] LABS: D-DIMER QUANTITATIVE 0.53 mg/L (0.0-0.50); INR 0.98 (0.8-3.0); PROTIME 10.7 SECONDS (9.4-12.5)
[2023-09-03 17:36] LABS: INFLUENZA A NEGATIVE (NEGATIVE); INFLUENZA B NEGATIVE (NEGATIVE); RESPIRATORY SYNCTIAL VIRUS NEGATIVE (NEGATIVE); SARS-CoV-2 Xpert Express NEGATIVE (NEGATIVE)
[2023-09-03] MEDS ORDERED: Sodium Chloride 0.9% 250 ML 250 ML IV ONE (18:30)
[2023-09-03] MEDS: Sodium Chloride 0.9% 250 ML 250 ML IV SCH (18:33)
[2023-09-03 19:09] VITALS: O2SAT 97
[2023-09-03] MEDS: HYDROCODONE-ACETAMIN 2.5-108/5 ML SOLUTION PO STA (19:50)
[2023-09-03] MEDS: solu-MEDROL 125 MG, Sterile H2O 10 ml 2 ML IV ONE (19:50)
[2023-09-03] MEDS: Zithromax 250 MG TABLET PO ONE (19:50)
[2023-09-03] MEDS ORDERED: Sterile H2O 10 ml IJ ONE (19:54)
[2023-09-03] MEDS ORDERED: Zithromax 250 MG TABLET ONE (19:54)
[2023-09-03] MEDS ORDERED: HYDROCODONE-ACETAMIN 2.5-108/5 ML SOLUTION ONE (19:55)
[2023-09-03] MEDS ORDERED: solu-MEDROL ONE (19:55)
[2023-09-03 20:03] VITALS: BP 155/102; PULSE 80; RESP 18
--- NOTE | 2023-09-04 08:48 | XRAY ---
Indication: Short of breath. Elevated d-dimer. Normal contiguous axial images obtained through the chest using 100 cc Isovue 370 contrast and PE protocol. Comparison: May 29, 2019 Good opacification of the pulmonary arteries to include the lobar and segmental branches. No pulmonary embolus. Heart not enlarged. Aorta is normal in course and caliber with minimal arch calcifications. No pathologic mediastinal/hilar lymphadenopathy. Lungs inflated again with minimal left base subsegmental atelectasis/scarring and tiny right basilar side granuloma. No suspicious pulmonary mass/nodule, infiltrate, effusion, or pneumothorax. Bony thorax intact again with mild degenerative changes throughout the spine. Limited upper abdomen again demonstrates fatty liver and small left adrenal adenoma. Impression: 1. Continue negative pulmonary embolus. No new/acute cardiopulmonary abnormalities. 2. Chronic findings including left base atelectasis/scarring, chronic bony findings, left adrenal adenoma, fatty liver, and old granulomatous disease.
== END 2023-09-03 20:08 | disposition home or self-care (01) ==
LOC: ED 16:03
DX: J06.9 Acute upper respiratory infection, unspecified (principal); J44.1 Chronic obstructive pulmonary disease with (acute) exacerbation; R06.02 Shortness of breath; R05.9 Cough, unspecified; I10 Essential (primary) hypertension; E11.9 Type 2 diabetes mellitus without complications; Z79.4 Long term (current) use of insulin; Z79.84 Long term (current) use of oral hypoglycemic drugs; Z79.85 Long-term (current) use of injectable non-insulin antidiabetic drugs; Z79.891 Long term (current) use of opiate analgesic; Z79.52 Long term (current) use of systemic steroids; Z79.899 Other long term (current) drug therapy; Z99.81 Dependence on supplemental oxygen; Z20.828 Contact with and (suspected) exposure to other viral communicable diseases
CPT/HCPCS: 0241U; 36000; 36415; 71045; 71260; 80047; 83735; 83880; 84484; 85025; 85379; 85610; 87040; 87651; 93005; 93041; 94760; 96374; 99284; J2930; A9270-GY